=== PATIENT | female | born 1990 | race Caucasian/White ===

== ENCOUNTER 2018-03-26 22:06 | Emergency (ER) | payer SELFPAY ==
--- NOTE | 2018-03-26 23:29 | EDM.PDOC ---
ED HPI GENERAL MEDICAL PROBLEM - General Chief Complaint: Skin Complaint Stated Complaint: SKIN TURNING PURPLE Time Seen by Provider: 03/26/18 22:54 Source of Information: Reports: Patient History Limitations: Reports: No Limitations - History of Present Illness INITIAL COMMENTS - FREE TEXT/NARRATIVE: This lady came in because she noticed that her arm suddenly turned blue this happened just short while ago and she said it was after she had a drink. 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 She said that dye was a brown color but the coloration to her arms is bluish. She's wondering if that dye could've been absorbed and somehow is being excreted out into her skin she's wondering if it might be toxic or something like that. She's not having any other symptoms - Related Data Allergies Allergy/AdvReac Type Severity Reaction Status Date / Time chlorhexidine Allergy Rash Verified 03/26/18 22:25 Home Meds: Home Meds NK [No Known Home Meds] 03/26/18 [History] Past Medical History Genitourinary History: Reports: Renal Calculus - Past Surgical History Female Surgical History: Reports: Other (See Below) Other Female Surgeries/Procedures: ovarian cyst Social & Family History - Tobacco Use Smoking Status *Q: Never Smoker ED ROS GENERAL - Review of Systems Review Of Systems: ROS reveals no pertinent complaints other than HPI. ED EXAM, SKIN/RASH Exam: See Below Exam Limited By: No Limitations General Appearance: Alert, WD/WN, No Apparent Distress Eye Exam: Bilateral Eye: Normal Inspection Throat/Mouth: Normal Inspection Head: Atraumatic Neck: Normal Inspection Respiratory/Chest: No Respiratory Distress Extremities: Normal Inspection Neurological: Alert Skin: Other (She does have a bluish discoloration which is goes all the way from her fingertips up into the axilla there is and across upper part of the shoulders. She doesn't have any on her chest or neck or face. 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 She's wondering if that the alcoholism bringing the dye out from under the skin. During this time it was noticed that she does have a blue shirt and the nurse checked in the dye does come off for a new shirt onto the alcohol pad. This is certain has never been washed. Obviously some dye this bleeding on the shirt. Departure - Departure Time of Disposition: 23:22 Disposition: Home, Self-Care 01 Condition: Fair Clinical Impression: Skin abnormalities - Discharge Information Referrals: PCP,None [Primary Care Provider] - Forms: ED Department Discharge Additional Instructions: You may continue to remove the dye with rubbing alcohol. LAVA soap may also work well. In the future always you good quality gloves when working with chemicals. Dye in your clothing may have also caused the problem.
== END 2018-03-26 23:42 | disposition home or self-care (01) ==
LOC: JP.ED 22:06
DX: L98.9 Disorder of the skin and subcutaneous tissue, unspecified (principal); Z88.8 Allergy status to other drugs, medicaments and biological substances
CPT/HCPCS: 99284